=== PATIENT | female | born 1950 | race Caucasian/White ===

== ENCOUNTER 2019-08-19 08:17 | Outpatient (CLI) | payer MEDICARE, SELFPAY ==
--- NOTE | ~2019-08-19 | US_ITS ---
EXAMINATION: US thyroid EXAM DATE: 08/19/2019 09:10 INDICATION: Goiter. TECHNIQUE: Multiple grayscale and Doppler images of the thyroid were obtained (by a technologist who performed the scan) and subsequently reviewed. Individual nodules and recommendations may be reporte d in accordance with TI-RADS system as designated by the 2017 ACR White Paper TI-RADS committee. Comp denisson is made to prior examination from 08/05/2018. FINDINGS: The right thyroid lobe measures 5.0 x 1.5 x 2.0 cm, the left measuring 5.0 x 1.7 x 1.7 cm. Mildly heterogeneous thyroid echogenicity. Several small thyroid nodules bilaterally, largest on the right measuring 0.9 x 0.7 x 0.8 centimeters, solid (2 points), hypoechoic (2 points), wider than tall , smooth margin, without echogenic foci, category TR4 for this nodule. Size and appearance is unchan ged compared to prior study. Largest nodule on the left is 4 mm in size, unchanged. IMPRESSION: 1. Mild thyromegaly. 2. Stable thyroid nodules likely benign; recommend one-year follow-up ultrasound. Reviewed, dictated and finalized at location B. IMPRESSION: 1. Mild thyromegaly. 2. Stable thyroid nodules likely benign; recommend one-year follow-up ultrasou nd.
== END 2019-08-19 08:18 | disposition home or self-care (01) ==
PROVIDERS: PCP Family Medicine
DX: E04.2 Nontoxic multinodular goiter (principal)
CPT/HCPCS: 76536

== ENCOUNTER 2020-09-20 09:11 | Outpatient (CLI) | payer MEDICARE, SELFPAY ==
--- NOTE | ~2020-09-20 | US_ITS ---
EXAMINATION: US thyroid EXAM DATE: 09/20/2020 09:41 INDICATION: Nontoxic multinodular goiter. TECHNIQUE: Multiple grayscale and Doppler images of the thyroid were obtained (by a technologist who performed the scan) and subsequently reviewed. Individual nodules and recommendations may be reporte d in accordance with TI-RADS system as designated by the 2017 ACR White Paper TI-RADS committee. Comp bess is made to prior examination from 08/05/2018. FINDINGS: The right thyroid lobe measures 5.0 x 1.9 x 2.0 cm, the left measuring 4.9 x 1.6 x 1.5 cm, dimensions are mildly enlarged. Scattered small thyroid nodules, largest on the right measuring 9 x 8 x 9 mm, u nchanged accounting for differences in technique. Largest nodule on the left is up to 6 mm, also stab le. IMPRESSION: Stable multinodular goiter, likely benign. Return to clinical follow-up and if additio nal palpable abnormality develops a repeat ultrasound can be obtained. Reviewed, dictated and finalized at location B. IMPRESSION: Stable multinodular goiter, likely benign. Return to clinical fo llow-up and if additional palpable abnormality develops a repeat ultrasound can be obtained.
== END 2020-09-20 09:12 | disposition home or self-care (01) ==
LOC: CHSIMG 09:13
PROVIDERS: PCP Family Medicine
DX: E04.2 Nontoxic multinodular goiter (principal)
CPT/HCPCS: 76536

== ENCOUNTER 2024-04-23 14:36 | Outpatient (CLI) | payer MEDICARE, SELFPAY ==
--- NOTE | ~2024-04-23 | US_ITS ---
EXAMINATION: US venous doppler LE LT DATE: 04/23/2024 15:22 INDICATION: LE pain and edema. TECHNIQUE: Grayscale images without and with compression and Doppler images of the left lower extremi ty veins were obtained. COMPARISON: None FINDINGS: The left common femoral vein, profunda (deep) femoral vein, femoral vein, popliteal vein, peroneal v ein, posterior tibial veins, gastrocnemius vein, and greater saphenous vein are patent. IMPRESSION: Patent left lower extremity veins. No evidence of deep venous thrombosis. Reviewed, dictated and finalized at location K. ETICS COUNTER MANAGER
--- OUTSIDE RECORDS SUMMARY | 2024-04-23 16:54 | XMS_ITS | Clinical Summary ---
Author Organization [facility] Address [facility] [place] [address] Care Team Providers Care Scene Shifter Name Role Phone Ray Barron MD Primary Care Provider [phone]- [phone] Allergies No known active allergies Medications ferrous sulfate, 65 mg elemental, 325 (65 FE) MG tablet Take 1 tablet (325 mg total) by mouth daily. Active atorvastatin (LIPITOR) 20 MG tablet Take 1 tablet (20 mg total) by mouth daily. Active metFORMIN ER (GLUCOPHAGE-XR ) 500 MG 24 hr tablet Take 1 tablet (500 mg total) by mouth daily. Active FLUoxetine (PROZAC) 20 MG capsule Take 3 capsules (60 mg total) by mouth daily. Active hydroCHLOROthi azide (HYDRODIURIL) 25 MG tablet Take 1 tablet (25 mg total) by mouth every morning. 8 Active rOPINIRole (REQUIP) 1 MG tablet Take 2 tablets (2 mg total) by mouth daily. Active OZEMPIC 1 mg/dose injection (PEN) INJECT 1MG SUBCUTANEOUSLY WEEKLY Active Active Problems Problem Noted Date Diagnosed Date Iron deficiency 10/23/2023 Encounters Date Type Department Care Team Description 03/21/2024 8:21 AM PEST CONTROL TECHNICIAN - 03/21/2024 11:59 PM [facility] Hospital Encounter [facility] [place] [address] Ashly Perez MD Discharge Disposition: Home or Self Care (Routine Discharge) 03/21/2024 Travel from Last 3 Months Social History Tobacco Use Types Packs/Day Years Used Date Smoking Tobacco: Never Smokeless Tobacco: Never Tobacco Cessation:Counseling Given: Not Answered Comments Unknown Sex and Gender Information Value Date Recorded Sex Assigned at Female 03/17/2024 7:42 AM PEST CONTROL TECHNICIAN Legal Sex Female 8:39 PM CDT Gender Identity Not on file Sexual Orientation Not on file Last Filed Vital Signs Vital Sign Reading Time Taken Comments Blood Pressure 144/67 12/03/2023 8:47 AM CDT Pulse 58 12/03/2023 8:47 AM CDT Temperature 35.8 C (96.4 F) 12/03/2023 8:47 AM CDT Respiratory Rate 14 12/03/2023 8:47 AM CDT Oxygen Saturation 100% 12/03/2023 8:47 AM CDT Inhaled Oxygen Concentration - - Weight 81.4 kg (179 lb 7.3 oz) 12/03/2023 8:47 A M CDT Height 165.7 cm (5' 5.25 ) 10/23/2023 1:59 PM CD T Body Mass Index 29.63 10/23/2023 1:59 PM CDT Plan of Treatment Health Maintenance Due Date Last Done Comments Hepatitis C 05/26/1969 DTaP, Tdap and Td Vaccines ( 1 - Tdap) 05/26/1970 Mammogram Screening 1991 Annual Medicare Wellness Visit 05/26/2016 Dexa Scan (General) 05/26/2016 Pneumococcal Vaccine: 65+ Years (1 of 1 - PCV) 05/26/2016 COVID-19 Vaccine (4 - 2023-2 5 season) 2023 11/21/2020, 05/12/2020, 04/21/2020 Influenza Adult (#1) 2023 Colorectal Cancer Screening Colonoscopy (10 Years) 06/19/2024 06/19/2014 RSV Immunization or 60+ Years (1 - 1-dose 75+ series) 05/26/2026 Zoster Vaccines Completed 03/26/2020, 01/21/2020 Meningococcal B Vaccine Aged Out No l onger eligible based on patient's age to complete this topic Meningococcal Vaccine Aged Out No damari brandan eligible based on patient's age to complete this topic RSV Immunizations Under 20 Months Aged Out No longer eligible b ased on patient's age to complete this topic Procedures Procedure Name Priority Date/Time Associated Diagnosis Comments MRI KNEE LT WO CON Routine 03/21/2024 9: 39 AM PEST CONTROL TECHNICIAN Left knee pain COLONOSCOPY GENERIC (SCAN ORDER) Routine 06/19/2014 12:00 AM CDT from Last 3 Months or Most Recently Relevant to Health Maintenance Results * MRI KNEE LT WO CON (03/21/2024 9:39 AM PEST CONTROL TECHNICIAN) Anatomical Region Laterality Modality Knee Magnetic Resonan ce 03/22/2024 2:58 AM PEST CONTROL TECHNICIAN Impressions 03/22/2024 3:16 AM PEST CONTROL TECHNICIAN IMPRESSION: 1. Horizontally oriented tear of the lateral meniscus that extends from the anterior horn to the posterior horn. This tear extends in close proximity but not into the root of the posterior horn of the lateral meniscus. 2. Horizontally oriented tear of the body and posterior horn of the medial meniscus. 3. Moderate-sized joint effusion that extends into a small ruptured/leaking popliteal cyst. 4. Moderate thinning of articular cartilage along the central portion of the patellar apex and lateral patellar facet. Referred By: ASHLY PEREZ Interpreted By: Say Lopez DO, 03/22/2024 2:58 AM Narrative 03/22/2024 3:16 AM PEST CONTROL TECHNICIAN [address] [place] [address] MRI of the left knee without contrast Exam Date: 03/21/2024 9:33 AM History: Left knee pain. Patient awoke with left knee pain one month ago with swelling that comes and goes. No known injury. Comparison Studies: MRI of the left knee 10/23/2008. TECHNIQUE: Multiplanar, multisequence MR imaging of the left knee was performed without intravenous contrast. FINDINGS: * Menisci: There is horizontally oriented fluid signal intensity in the body and posterior horn of the medial meniscus that appears to extend to the tibial articular surface on series 7 image 23 and series 5 image 19 compatible with a horizontally oriented tear. There is also a horizontally oriented tear of the lateral meniscus that extends from the anterior horn through the body to the posterior horn. This tear extends in close proximity to but not into the root of the posterior horn of the lateral meniscus. * Ligaments: The anterior cruciate ligament and posterior cruciate ligament are intact without evidence to suggest fluid-filled tear. The medial collateral ligament is intact without evidence to suggest fluid- filled tear. Mild periligamentous edema is likely reactive to adjacent meniscal tear. The iliotibial band, lateral collateral ligament proper, biceps femoris tendon, and popliteus tendon are intact. * Extensor Mechanism: The distal quadriceps and patellar tendons are intact. No evidence is seen to suggest gross disruption of the medial or lateral patellar retinacula. * Joint: There is a moderate-sized joint effusion. A small volume of joint fluid extends posteromedially into a small ruptured/leaking popliteal cyst. No discrete intra-articular body is seen. * Articular Cartilage: Articular cartilage in the medial and lateral compartments is relatively preserved without evidence to suggest fluid-filled articular cartilage defect. There is moderate thinning of articular cartilage along the central portion of the patellar apex and lateral patellar facet. * Miscellaneous: No marrow signal abnormality is seen to suggest acute fracture or contusion. Procedure Note Say Lopez, DO - 03/22/[address] [place] [address] MRI of the left knee without contrast Exam Date: 03/21/2024 9:33 AM History: Left knee pain. Patient awoke with left knee pain one month agowith swelling that comes and goes. No known injury. Comparison Studies: MRI of the left knee 10/23/2008. TECHNIQUE: Multiplanar, multisequence MR imaging of the left knee wasperformed without intravenous contrast. FINDINGS: * Menisci: There is horizontally oriented fluid signal intensity in thebody and posterior horn of the medial meniscus that appears to extend tothe tibial articular surface on series 7 image 23 and series 5 image 19compatible with a horizontally oriented tear. There is also ahorizontally oriented tear of the lateral meniscus that extends from theanterior horn through the body to the posterior horn. This tear extendsin close proximity to but not into the root of the posterior horn of thelateral meniscus. * Ligaments: The anterior cruciate ligament and posterior cruciateligament are intact without evidence to suggest fluid-filled tear. Themedial collateral ligament is intact without evidence to suggestfluid-filled tear. Mild periligamentous edema is likely reactive toadjacent meniscal tear. The iliotibial band, lateral collateral ligamentproper, biceps femoris tendon, and popliteus tendon are intact. * Extensor Mechanism: The distal quadriceps and patellar tendons areintact. No evidence is seen to suggest gross disruption of the medial orlateral patellar retinacula. * Joint: There is a moderate-sized joint effusion. A small volume ofjoint fluid extends posteromedially into a small ruptured/leakingpopliteal cyst. No discrete intra-articular body is seen. * Articular Cartilage: Articular cartilage in the medial and lateralcompartments is relatively preserved without evidence to suggestfluid-filled articular cartilage defect. There is moderate thinning ofarticular cartilage along the central portion of the patellar apex andlateral patellar facet. * Miscellaneous: No marrow signal abnormality is seen to suggest acutefracture or contusion. IMPRESSION: 1. Horizontally oriented tear of the lateral meniscus that extends fromthe anterior horn to the posterior horn. This tear extends in closeproximity but not into the root of the posterior horn of the lateralmeniscus. 2. Horizontally oriented tear of the body and posterior horn of themedial meniscus. 3. Moderate-sized joint effusion that extends into a smallruptured/leaking popliteal cyst. 4. Moderate thinning of articular cartilage along the central portion ofthe patellar apex and lateral patellar facet. Referred By: ASHLY PEREZ Interpreted By: Sya Lopez DO, 03/22/2024 2:58 AM us Ashly Perez MD MRI Final Resu lt * COLONOSCOPY (06/19/2014 12:00 AM CDT) 06/19/2014 [facility] Scanned SCANNING Final Resu lt [facility] [place] from Last 3 Months or Most Recently Relevant to Health Maintenance Insurance [employer] Care Teams Scene Shifter Relationship Specialty Start Date End Date Ray Barron MD [address] [place] [phone] PCP - General FAMILY PRACTICE 10/22/18
--- OUTSIDE RECORDS SUMMARY | 2024-04-23 16:54 | XMS_ITS | Encounter Summary ---
Author Organization [facility] Address [address] [place] [id number] Care Team Providers Care Needle Leader Name Role Phone Ray Barron MD Primary Care Provider [phone] Encounter Details Date Type Department Care Team (Late st Contact Info) Description 08/03/2018 Abstract [facility] CONVERSION [address] [place] [address] , Generic ConversionMD Social History Tobacco Use Types Packs/Day Years Used Date Smoking Tobacco: Never Assessed Comments Unknown Sex and Gender Information Value Date Recorded Sex Assigned at Female 03/17/2024 7:42 AM FARM CONSULTANT Legal Sex Female 8:39 PM CDT Gender Identity Not on file Sexual Orientation Not on file documented as of this encounter Plan of Treatment Not on file documented as of this encounter Visit Diagnoses Not on filedocumented in this encounter Care Teams Needle Leader Relationship Specialty Start Date End Date Ray Barron MD [address] [place] [phone] PCP - General FAMILY PRACTICE 10/22/18 documented as of this encounter
== END 2024-04-23 14:37 | disposition home or self-care (01) ==
PROVIDERS: PCP Family Medicine; Visit Provider Orthopaedic Surgery
DX: R60.0 Localized edema (principal)
CPT/HCPCS: 93971